=== PATIENT | female | born 1995 | race Caucasian/White ===

== ENCOUNTER 2018-11-06 18:55 | Emergency (ER) | payer OTHER ==
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
[2018-11-06] MEDS ORDERED: Tenofovir/Emtricitab 200/300 * TAB PO ONE ×2 (21:12→21:14)
[2018-11-06] MEDS ORDERED: cefTRIAXone VIAL(*) 250 MG VIAL IM ONE (21:12)
[2018-11-06] MEDS ORDERED: Azithromycin TAB* 250 MG PO ONE (21:12)
[2018-11-06] MEDS ORDERED: Raltegravir* 400 MG TAB PO ONE ×2 (21:12→21:14)
[2018-11-06 21:41] LABS: ABS Basophils 0 10^3/ul (0-0.2); ABS Eosinophils 0.2 10^3/ul (0-0.6); ABS Lymphocytes 2.6 10^3/ul (1.0-4.8); ABS Monocytes 0.4 10^3/ul (0-0.8); ABS Nucleated RBC 0 10^3/ul; Eosinophil % 2.5 %; Hematocrit 40 % (35-47); Hemoglobin 13.4 g/dL (12.0-16.0); Lymphocyte % 31.9 %; Mean Corpuscular HGB Conc 34 g/dL (31-36); Mean Corpuscular Hemoglobin 31 pg (27-31); Mean Corpuscular Volume 93 fL (80-97); Mean Platelet Volume 8.4 fL (7.4-10.4); Nucleated Red Blood Cells % 0.1; Platelet Count 260 10^3/uL (150-450); Red Blood Count 4.27 10^6 /uL (3.70-4.87); Red Cell Distribution Width 13 % (10.5-15); White Blood Count 8.2 10^3/uL (3.5-10.8)
[2018-11-06 21:58] LABS: ALT 10 U/L (7-52); AST 17 U/L (13-39); Albumin 4.6 g/dL (3.2-5.2); Alkaline Phosphatase 42 U/L (34-104); Anion Gap 7 mmol/L (2-11); BUN/Creatinine Ratio 14.1 (8-20); Blood Urea Nitrogen 12 mg/dL (6-24); CO2 Carbon Dioxide 26 mmol/L (22-32); Calcium 9.4 mg/dL (8.6-10.3); Chloride 105 mmol/L (101-111); EGFR African American 99.4 (>60); EGFR Non-African American 82.2 (>60); Globulin 2.3 g/dL (2-4); Glucose 96 mg/dL (70-100); Sodium 138 mmol/L (135-145); Total Protein 6.9 g/dL (6.4-8.9)
[2018-11-06 22:04] LABS: HCG Pregnancy < 0.60 mIU/mL
[2018-11-06 22:29] LABS: Rapid HIV 1 Nonreactive (Nonreactive)
[2018-11-06] MEDS ORDERED: Lidocaine 1%* 5 ML VIAL ONE (22:43)
[2018-11-06] MEDS ORDERED: Ondansetron ODT TAB* 4 MG PO ONE (23:03)
[2018-11-06 23:42] VITALS: BP 122/70
[2018-11-07 10:28] LABS: Hepatitis B Surface Antigen Nonreactive (Nonreactive)
[2018-11-07 10:55] LABS: Hepatitis C Antibody Nonreactive (Nonreactive)
[2018-11-07 10:58] LABS: Hepatitis B Surface AB Not Immune (Immune)
== END 2018-11-06 23:30 | disposition home or self-care (01) ==
LOC: ED 18:55
DX: Z04.41 Encounter for examination and observation following alleged adult rape (principal)
CPT/HCPCS: 36415; 80053; 84702; 85025; 86703; 86706; 86803; 87340; 99281; A9270-GY; J0696